=== PATIENT | female | born 2000 | race Caucasian/White ===

== ENCOUNTER 2024-11-01 20:08 | Emergency (ER) | payer BC ==
[~2024-11-01] VITALS: Ht 170.2 cm; Wt 129.7 kg
[2024-11-01 20:16] VITALS: O2SAT 99
[2024-11-01 21:02] LABS: BASOPHILS % 0.5 % (0.0-2.0); DIFFERENTIAL COMMENT 0; EOSINOPHILS % 0.7 % (0.0-5.0); HEMATOCRIT. 36.2 % (36.0-48.0); HEMOGLOBIN. 11.9 g/dL (12.0-16.0); LYMPHOCYTES % 15.4 % (20.0-50.0); MEAN CORPUSCULAR HEMOGLOBIN 25.3 pg (28.0-32.0); MEAN CORPUSCULAR HGB CONC 32.8 g/dL (31.0-37.0); MEAN CORPUSCULAR VOLUME 77.2 fL (81.0-99.0); MONOCYTES % 7.4 % (2.0-8.0); PLATELET 263 x1000/uL (130-400); RED BLOOD CELL COUNT 4.68 mill/uL (4.2-5.4); RED CELL DISTRIBUTION WIDTH 14.8 % (11.6-14.6); WHITE BLOOD COUNT 10.5 x1000/uL (4.5-11.0)
[2024-11-01 21:18] LABS: CHLORIDE 105 mEq/L (98-107); POTASSIUM 3.6 mEq/L (3.5-5.1); SODIUM 143 mEq/L (136-145)
[2024-11-01 21:19] LABS: CARBON DIOXIDE 26 mEq/L (21-32)
[2024-11-01 21:24] LABS: CREATININE 0.8 mg/dL (0.6-1.0); GLUCOSE 129 mg/dL (70-105); UREA NITROGEN BLOOD 15 mg/dL (9-23)
[2024-11-01 21:26] LABS: ALANINE AMINOTRANSFERASE 23 IU/L (10-49); ALBUMIN 4.4 g/dL (3.2-4.8); ASPARTATE AMINOTRANSFERASE 60 IU/L (<34); BILIRUBIN DIRECT 0.4 mg/dL (<=3.0)
[2024-11-01 21:27] LABS: PROTEIN TOTAL 7.7 g/dL (6.0-8.3)
[2024-11-01 21:33] LABS: HCG SCREEN NEGATIVE
[2024-11-01 22:01] LABS: CLARITY URINE CLEAR (CLEAR); COLOR URINE DARK YELLOW (YELLOW); GLUCOSE URINE NEGATIVE (NEGATIVE); KETONES URINE TRACE (NEGATIVE); LEUKOCYTE ESTERASE URINE TRACE (NEGATIVE); NITRITE URINE NEGATIVE (NEGATIVE); OCCULT BLOOD URINE NEGATIVE (NEGATIVE); PROTEIN URINE TRACE (NEGATIVE); SPECIFIC GRAVITY URINE 1.042 (1.005-1.030)
[2024-11-01] MEDS ORDERED: FAMO20TA8 MT (22:29)
[2024-11-01] MEDS ORDERED: MAG-55 MT (22:29)
[2024-11-01 22:52] LABS: BACTERIA URINE 1+; RBC URINE 0-2 /hpf (0-2); SQUAMOUS EPITHELIAL CELL URINE 1+ /lpf (RARE/1+); WBC URINE 0-2 /hpf (0-2)
[2024-11-01 22:53] VITALS: BP 113/52; PULSE 53; RESP 18; TEMP 36.9; O2SAT 99
== END 2024-11-01 22:54 | disposition home or self-care (01) ==
LOC: ER 20:08
DX: K29.70 Gastritis, unspecified, without bleeding (principal); Z79.899 Other long term (current) drug therapy
CPT/HCPCS: 36415; 80048; 80076; 81003; 81025; 84703; 85025; 99283; A4565

== ENCOUNTER 2024-12-04 05:11 | Emergency (ER) | payer BC ==
[~2024-12-04] VITALS: Ht 170.2 cm; Wt 127.0 kg
[~2024-12-04 05:11] MED LIST: FAMO20TA8 MT; MAG-55 MT
[2024-12-04 05:15] VITALS: O2SAT 100
[2024-12-04] MEDS ORDERED: KETOROLAC 30MG/ML VIAL IV STA (05:32)
[2024-12-04] MEDS ORDERED: MAGNESIUM/ALUMINUM HYDROXIDE/SIMETHICONE 30ML UDC PO STA (05:32)
[2024-12-04] MEDS ORDERED: FAMOTIDINE 20MG/2ML VIAL IV STA (05:32)
[2024-12-04] MEDS ORDERED: ACETAMINOPHEN 325MG TABLET PO STA (05:32)
[2024-12-04] MEDS ORDERED: ONDANSETRON HCL 4MG/2ML INJ IV STA (05:32)
[2024-12-04 06:01] VITALS: TEMP 37.1; O2SAT 100
[2024-12-04 06:14] LABS: BASOPHILS % 0.4 % (0.0-2.0); DIFFERENTIAL COMMENT 0; EOSINOPHILS % 0.5 % (0.0-5.0); HEMATOCRIT. 37.1 % (36.0-48.0); HEMOGLOBIN. 12.2 g/dL (12.0-16.0); LYMPHOCYTES % 14.5 % (20.0-50.0); MEAN CORPUSCULAR HEMOGLOBIN 25.2 pg (28.0-32.0); MEAN CORPUSCULAR VOLUME 76.2 fL (81.0-99.0); MEAN PLATELET VOLUME 8.8 fl (7.4-10.4); MONOCYTES % 5.1 % (2.0-8.0); NEUTROPHILS % 79.5 % (40.0-76.0); PLATELET 276 x1000/uL (130-400); RED BLOOD CELL COUNT 4.86 mill/uL (4.2-5.4); RED CELL DISTRIBUTION WIDTH 15.2 % (11.6-14.6); WHITE BLOOD COUNT 8.6 x1000/uL (4.5-11.0)
[2024-12-04 06:26] LABS: CARBON DIOXIDE 28 mEq/L (21-32); CHLORIDE 105 mEq/L (98-107); POTASSIUM 3.6 mEq/L (3.5-5.1); SODIUM 141 mEq/L (136-145)
[2024-12-04 06:27] LABS: CALCIUM 9.9 mg/dL (8.7-10.4)
[2024-12-04 06:32] LABS: CREATININE 0.8 mg/dL (0.6-1.0); GLUCOSE 141 mg/dL (70-105); UREA NITROGEN BLOOD 11 mg/dL (9-23)
[2024-12-04 06:33] LABS: ALANINE AMINOTRANSFERASE 11 IU/L (10-49); ALBUMIN 4.3 g/dL (3.2-4.8); ASPARTATE AMINOTRANSFERASE 23 IU/L (<34)
[2024-12-04 06:34] LABS: BILIRUBIN DIRECT 0.4 mg/dL (<=3.0); PROTEIN TOTAL 7.5 g/dL (6.0-8.3)
[2024-12-04 06:38] LABS: HCG SCREEN NEGATIVE
[2024-12-04 07:51] LABS: CLARITY URINE CLEAR (CLEAR); COLOR URINE DARK YELLOW (YELLOW); GLUCOSE URINE NEGATIVE (NEGATIVE); KETONES URINE TRACE (NEGATIVE); LEUKOCYTE ESTERASE URINE 1+ (NEGATIVE); NITRITE URINE NEGATIVE (NEGATIVE); OCCULT BLOOD URINE 1+ (NEGATIVE); PH URINE 5.5 (4.5-8.0); PROTEIN URINE TRACE (NEGATIVE); SPECIFIC GRAVITY URINE 1.027 (1.005-1.030)
[2024-12-04 08:07] LABS: BACTERIA URINE 1+; RBC URINE 0-2 /hpf (0-2); SQUAMOUS EPITHELIAL CELL URINE 1+ /lpf (RARE/1+); YEAST URINE NONE SEEN
[2024-12-04] MEDS: ACETAMINOPHEN 325MG TABLET PO NR (08:28)
[2024-12-04] MEDS: FAMOTIDINE 20MG/2ML VIAL IV NR (08:28)
[2024-12-04 08:29] VITALS: BP 137/70; PULSE 76; RESP 18
[2024-12-04] MEDS: SODIUM CHLORIDE 0.9% 1,000 ML IV ONE (08:29)
[2024-12-04] MEDS: KETOROLAC 15MG/ML VIAL IV NR (08:29)
[2024-12-04] MEDS: MAGNESIUM/ALUMINUM HYDROXIDE/SIMETHICONE 30ML UDC PO NR (08:29)
[2024-12-04] MEDS: ONDANSETRON HCL 4MG/2ML INJ IV NR (08:30)
[2024-12-04] MEDS ORDERED: ONDA-239 PO (08:38)
== END 2024-12-04 09:57 | disposition home or self-care (01) ==
LOC: ER 05:11
DX: K29.70 Gastritis, unspecified, without bleeding (principal); Z87.19 Personal history of other diseases of the digestive system
CPT/HCPCS: 80076; 80048; 81003; 84703; 83690; 85025; 36415; 93005; 96374; 96375; 99284; J3490; J1885; J2405; J7030; Z7610 ×3

== ENCOUNTER 2025-03-16 01:57 | Inpatient (IN) | payer BC ==
[~2025-03-16] VITALS: Ht 170.2 cm; Wt 125.2 kg
[~2025-03-16 01:57] MED LIST changes: +ONDA-239 PO
[2025-03-16 02:07] VITALS: O2SAT 100
[2025-03-16 02:50] LABS: BASOPHILS % 0.4 % (0.0-2.0); EOSINOPHILS % 0.0 % (0.0-5.0); HEMATOCRIT. 33.6 % (36.0-48.0); HEMOGLOBIN. 10.9 g/dL (12.0-16.0); LYMPHOCYTES % 10.5 % (20.0-50.0); MEAN PLATELET VOLUME 9.2 fl (7.4-10.4); MONOCYTES % 9.9 % (2.0-8.0); NEUTROPHILS % 79.2 % (40.0-76.0); PLATELET 232 x1000/uL (130-400); RED BLOOD CELL COUNT 4.49 mill/uL (4.2-5.4); RED CELL DISTRIBUTION WIDTH 14.1 % (11.6-14.6)
[2025-03-16] MEDS: MAGNESIUM/ALUMINUM HYDROXIDE/SIMETHICONE 30ML UDC PO ONE (02:53)
[2025-03-16] MEDS: SODIUM CHLORIDE 0.9% 1,000 ML IV ONE (02:54)
[2025-03-16] MEDS: FAMOTIDINE 20MG/2ML VIAL IV ONE (02:54)
[2025-03-16] MEDS: MORPHINE SULFATE 4 MG/ML INJ (FOR IV/IM USE) IV ONE (02:55)
[2025-03-16 03:01] LABS: HCG SCREEN NEGATIVE
[2025-03-16 03:02] LABS: CREATININE 0.9 mg/dL (0.6-1.0)
[2025-03-16 03:03] LABS: UREA NITROGEN BLOOD 10 mg/dL (9-23)
[2025-03-16 04:14] LABS: ASPARTATE AMINOTRANSFERASE 22 IU/L (<34); BILIRUBIN DIRECT 0.3 mg/dL (<=3.0); BILIRUBIN TOTAL 0.7 mg/dL (0.1-1.0); PROTEIN TOTAL 7.2 g/dL (6.0-8.3)
[2025-03-16 05:38] LABS: CLARITY URINE CLEAR (CLEAR); COLOR URINE YELLOW (YELLOW); GLUCOSE URINE NEGATIVE (NEGATIVE); KETONES URINE NEGATIVE (NEGATIVE); LEUKOCYTE ESTERASE URINE 3+ (NEGATIVE); NITRITE URINE NEGATIVE (NEGATIVE); OCCULT BLOOD URINE TRACE (NEGATIVE); PH URINE 6.5 (4.5-8.0); PROTEIN URINE NEGATIVE (NEGATIVE); SPECIFIC GRAVITY URINE 1.014 (1.005-1.030); UROBILINOGEN URINE 1.0 E.U./dL (0.2-1.0)
[2025-03-16] MEDS ORDERED: METR-167 MT (05:51)
[2025-03-16] MEDS ORDERED: DOXY100C5 MT (05:51)
[2025-03-16] MEDS ORDERED: VALA10002 MT (05:54)
[2025-03-16 06:23] LABS: SQUAMOUS EPITHELIAL CELL URINE 2+ /lpf (RARE/1+); WBC URINE 25-50 /hpf (0-2)
[2025-03-16] MEDS: CEFTRIAXONE SODIUM 500MG VIAL IV ONE (06:23)
[2025-03-16 06:24] LABS: BACTERIA URINE TRACE
[2025-03-16 08:00] VITALS: BP 112/45; PULSE 64; RESP 19; TEMP 36.2; O2SAT 100
[2025-03-16] MEDS: KETOROLAC 30MG/ML VIAL IV PRN (08:28)
[2025-03-16] MEDS ORDERED: ONDANSETRON HCL 4MG/2ML INJ IV PRN (08:45)
[2025-03-16] MEDS ORDERED: VALACYCLOVIR HCL 500MG TABLET PO SCH (09:00)
[2025-03-16 10:00] VITALS: BP 112/45; PULSE 64; RESP 19; TEMP 36.2512
[2025-03-16] MEDS: CEFTRIAXONE 1GM/50ML 50 ML IV SCH (11:00)
[2025-03-16] MEDS ORDERED: NALOXONE HCL 0.4MG/ML VIAL IV PRN (11:45)
[2025-03-16 12:00] VITALS: BP 108/54; PULSE 73; RESP 18; TEMP 38.1; O2SAT 99
[2025-03-16 16:00] VITALS: BP 105/58; PULSE 64; RESP 17; TEMP 37; O2SAT 97
[2025-03-16] MEDS: ACETAMINOPHEN 325MG TABLET PO PRN (17:13)
[2025-03-16 20:00] VITALS: BP 98/46; PULSE 78; RESP 20; TEMP 37.9; O2SAT 97
[2025-03-17] VITALS: BP 113/59; PULSE 72; RESP 20; TEMP 38.8; O2SAT 100
[2025-03-17 04:00] VITALS: BP 104/56; PULSE 60; RESP 20; TEMP 36.6; O2SAT 99
[2025-03-17] MEDS: HYDROCODONE/ACETAMINOPHEN 5/325MG TABLET PO PRN (06:45)
[2025-03-17 08:00] VITALS: BP 113/63; PULSE 71; RESP 20; TEMP 36.5; O2SAT 100
[2025-03-17] MEDS ORDERED: LEVO-65 MT (12:02)
[2025-03-17 12:30] VITALS: BP 112/47; PULSE 65; RESP 18; TEMP 97
[2025-03-18 04:07] LABS: CHLAMYDIA TRACHOMATIS NAA Negative (Negative); NEISSERIA GONORRHOEAE NAA Negative (Negative)
== END 2025-03-17 14:55 | disposition home or self-care (01) | DRG 445 ==
LOC: ER 01:57 → 7EST 05:58 → EDBEDREQTM 06:20 → EDBEDREQ 06:20 → ENRESERV 06:31
PROVIDERS: ADMIT Internal Medicine; ATTEND Internal Medicine
DX: K80.10 Calculus of gallbladder with chronic cholecystitis without obstruction (principal); N39.0 Urinary tract infection, site not specified; E87.6 Hypokalemia; D64.9 Anemia, unspecified; E66.01 Morbid (severe) obesity due to excess calories; Z68.41 Body mass index [BMI] 40.0-44.9, adult
CPT/HCPCS: 36415; 74176; 74181; 76705; 80048; 80076; 81003; 83036; 84703; 85025; 86592; 87210; 87491; 87591; 99285; A4606; J0696; J1308; J1885; J2270; J7030